=== PATIENT | female | born 1960 | race Caucasian/White ===

== ENCOUNTER 2016-11-29 10:53 | Emergency (ER) | payer BC, OTHER ==
[2016-11-29 15:15] LABS: Hematocrit 46 % (35-47); Hemoglobin 15.7 g/dl (12.0-16.0); Mean Corpuscular HGB Conc 34 g/dl (31-36); Mean Corpuscular Hemoglobin 33 pg (27-31); Mean Corpuscular Volume 95 fL (80-97); Mean Platelet Volume 9 um3 (7.4-10.4); Red Blood Count 4.79 10^6/ul (4.0-5.4); Red Cell Distribution Width 14 % (10.5-15)
[2016-11-29 15:19] LABS: Comments Flag Yes
[2016-11-29 15:32] LABS: Albumin 4.5 g/dL (3.2-5.2); BUN/Creatinine Ratio 20.7 (8-20); C Reactive Protein 1.52 mg/L (< 5.00); Calcium 9.3 mg/dL (8.6-10.3); EGFR African American 139.3 (>60); EGFR Non-African American 108.3 (>60); Globulin 3.6 g/dL (2-4); Potassium 3.7 mmol/L (3.5-5.0); Total Bilirubin 0.4 mg/dL (0.2-1.0); Total Protein 8.1 g/dL (6.4-8.9)
[2016-11-29 15:33] LABS: Urine Bilirubin Negative (Negative); Urine Glucose Negative (Negative); Urine Nitrite Negative (Negative)
[2016-11-29 16:30] LABS: Add Diff/Slide Review? Manual Diff Added
[2016-11-29 16:31] LABS: Immature Granulocytes 4 % (0-9); Neutrophil % 61 % (38-83); RBC Morphology Normal (Normal); Reactive Lymph % 7 % (0-6)
--- NOTE | 2016-11-29 18:01 | RAD ---
INDICATION: Pelvic pain. COMPARISON: Comparison is made with a prior study from July 07, 2013. TECHNIQUE: Multiple real-time transvaginal images of the pelvis were obtained. FINDINGS: The uterus is heterogeneous throughout with multiple small fibroids. The largest measures 0.7 x 0.4 x 0.9 cm. The uterus measured 6.9 x 3.5 x 5.1 cm. The endometrial echo measured 0.3 cm in thickness. The right ovary measured 2.1 x 1.3 x 1.8 cm. The left ovary measured 3.6 x 2.2 x 3.1 cm. There is vascular flow within both ovaries. There is a slightly complex left ovarian cyst with a mildly thickened septa measuring 2.5 x 2.1 x 2.7 cm. No free intraperitoneal fluid is seen. IMPRESSION: 1. HETEROGENEOUS UTERUS WITH MULTIPLE SMALL LEIOMYOMAS. 2. SLIGHTLY COMPLEX 2.7 CM LEFT OVARIAN CYST. RECOMMEND A FOLLOW-UP PELVIC ULTRASOUND IN 1-2 MONTHS TIME TO DEMONSTRATE RESOLUTION.
[2016-11-29] MEDS ORDERED: Iohexol 300* (CONTRAST) 10 ML SDV IV ONE (18:29)
--- NOTE | 2016-11-29 19:02 | RAD ---
INDICATION: Abdominal pain. COMPARISON: Comparison is made with a prior CT angiogram of the abdomen and pelvis from February 18, 2013. TECHNIQUE: A CT scan of the abdomen and pelvis was performed with intravenous and oral contrast following intravenous injection of 85 ml of Omnipaque 300 nonionic contrast. Contiguous axial sections were obtained from the lung bases through the symphysis pubis. Images were reconstructed in the coronal and sagittal planes. FINDINGS: The lung bases are clear. No pleural effusion is present. The liver and spleen are normal in size. There is a small hypodense hepatic lesion present in the superior portion of the right hepatic lobe which is unchanged from the prior exam and likely represents a cyst. This measures 0.8 cm in size. No calcified gallstones are seen. The pancreas appears prominent although unchanged from the prior study. No pancreatic ductal distention is present. There are thickening of the limbs of the left adrenal gland which are unchanged. The right adrenal gland appears normal. The kidneys are normal in size. No hydronephrosis is seen. No significant focal renal abnormality is seen. The aorta is normal in caliber with moderate calcific plaque present. No significant enlarged retroperitoneal lymph nodes are seen. The stomach, small and large bowel appear nondistended. The appendix is within normal limits. There is mild descending and sigmoid diverticulosis. There is no evidence for diverticulitis or colitis. The uterus is retroverted and normal in size. There is a 2.4 x 2.0 cm left ovarian cyst. No free intraperitoneal air or fluid is seen. No significant focal osseous abnormality is seen. IMPRESSION: 1. NO EVIDENCE FOR ACUTE FINDING OR CAUSE FOR THE PATIENT'S ABDOMINAL PAIN IS SEEN. 2. 2.4 CM LEFT OVARIAN CYST.
[2016-11-29 19:42] VITALS: BP 123/74
--- NOTE | 2016-11-29 19:42 | ED ---
Sandhya Caba SooYoung, scribed for Nino Canada MD on 11/29/16 at 1423 . Abdominal Pain/Female - HPI Summary HPI Summary: A 56 y/o F presents to ED with c/o intermittent suprapubic abd pain onset 2 weeks ago. Pain rated as 5 out of 10. Associated sx: fatigue, nausea, L-sided lower back and flank pain, chills, itchy "all over," irregular BMs with episodes of constipation and diarrhea, increased frequency. Pt notes chronic back pain. Last BM was this AM. Denies vomiting, vaginal bleeding and discharge , dysuria. She spoke to her PCP's office who referred her to ED. No alleviating or aggravating factors. [facility]: over a year ago, she had a uterine ablasion for excessive bleeding. Pert PMHx: IBS, kidney infections. PSHx: , uterine ablasion. NKA. - History of Current Complaint Chief Complaint: EDAbdPain Stated Complaint: LOWER BACK,LT SIDE,STOMACH PAIN Time Seen by Provider: 11/29/16 14:15 Hx Obtained From: Patient Onset/Duration: Gradual Onset, Lasting Weeks - approx 2, Still Present Timing: Intermittent Episode Lasting Severity Initially: Moderate Severity Currently: Moderate Pain Intensity: 5 Pain Scale Used: 0-10 Numeric Location: Suprapubic Radiates: Yes Radiates to: Back, Flank Associated Signs and Symptoms: Positive: Back Pain, Constipation, Urinary Symptoms - frequency, Nausea, Diarrhea, Other: - pos: fatigue, chills, itchy. Negative: Vaginal Bleeding, Vaginal Discharge, Vomiting Allergies/Adverse Reactions: Allergies Allergy/AdvReac Type Severity Reaction Status Date / Time No Known Allergies Allergy Verified 12/25/14 18:16 PMH/Surg Hx/FS Hx/Imm Hx Previously Healthy: No Endocrine/Hematology History: Denies: Hx Diabetes Cardiovascular History: Denies: Hx Congestive Heart Failure, Hx Hypertension History: Reports: Hx Kidney Infection Denies: Hx Kidney Stones Musculoskeletal History: Reports: Hx Back Problems - Cancer History Hx Chemotherapy: No Hx Radiation Therapy: No Infectious Disease History: No Infectious Disease History: Denies: Traveled Outside the [place] in Last 30 Days - Family History Known Family History: Positive: Cardiac Disease - Father at 48, cardiac related, Other - [place], dementia - Social History Occupation: Employed Full-time Lives: Alone Alcohol Use: None Hx Substance Use: No Substance Use Type: Reports: None Hx Tobacco Use: Yes Smoking Status (MU): Heavy Every Day Tobacco Smoker Review of Systems Positive: Chills, Fatigue, Other - itchy all over Positive: Abdominal Pain, Diarrhea, Nausea, Other - pos: constipation. Negative : Vomiting Positive: frequency, flank pain - L. Negative: dysuria, discharge Positive: Other - pos: L lower back pain All Other Systems Reviewed And Are Negative: Yes Physical Exam Triage Information Reviewed: Yes Vital Signs On Initial Exam: Initial Vitals Temp Pulse Resp BP Pulse Ox 98.9 F 68 20 133/72 99 11/29/16 11:04 11/29/16 11:04 11/29/16 11:04 11/29/16 11:04 11/29/16 11:04 Vital Signs Reviewed: Yes Appearance: Positive: Well-Appearing, No Pain Distress Skin: Positive: Warm, Skin Color Reflects Adequate Perfusion Head/Face: Positive: Normal Head/Face Inspection Eyes: Positive: EOMI ENT: Positive: Normal ENT inspection Respiratory/Lung Sounds: Positive: Clear to Auscultation, Breath Sounds Present Cardiovascular: Positive: RRR. Negative: Murmur Abdomen Description: Positive: CVA Tenderness (L), Other: - some suprapubic tenderness Neurological: Positive: Sensory/Motor Intact, Alert, Oriented to Person Place, Time, CN Intact II-III Psychiatric: Positive: Normal - Carly Coma Scale Best Eye Response: 4 - Spontaneous Best Motor Response: 6 - Obeys Commands Best Verbal Response: 5 - Oriented Diagnostics - Vital Signs Vital Signs Temp Pulse Resp BP Pulse Ox 11/29/16 12:37 98.6 F 62 20 110/65 99 11/29/16 11:04 98.9 F 68 20 133/72 99 - Laboratory Result Diagrams: 11/29/16 14:55 11/29/16 14:55 Lab Statement: Any lab studies that have been ordered have been reviewed, and results considered in the medical decision making process. - CT A/P CT CT Interpretation: Positive (See Comments) - IMPRESSION: 1. NO EVIDENCE FOR ACUTE FINDING OR CAUSE FOR THE PATIENT'S ABDOMINAL PAIN IS SEEN. 2. 2.4 CM LEFT OVARIAN CYST. ED physician has reviewed this radiology report and agrees. CT Interpretation Completed By: Radiologist - Ultrasound No standard instances Ultrasound Interpretation: Positive (See Comments) - IMPRESSION: 1. HETEROGENEOUS UTERUS WITH MULTIPLE SMALL LEIOMYOMAS. 2. SLIGHTLY COMPLEX 2.7 CM LEFT OVARIAN CYST. RECOMMEND A FOLLOW-UP PELVIC ULTRASOUND IN 1-2 MONTHS TIME TO DEMONSTRATE RESOLUTION. ED physician has reviewed this radiology report and agrees. Ultrasound Interpretation Completed By: Radiologist Re-Evaluation - Re-Evaluation First Eval Re-Evaluation Time: 14:35 Change: Unchanged Comment: charge nurse kamlesh, and primary nurse made aware labs and urine need to be drawn and sent Second Eval Re-Evaluation Time: 19:41 Change: Improved Comment: The patient is comfortable at this point. She was informed of all her test results and she is aware she needs to follow up with [employer] to be sure the left ovarian cyst resolves and for follow up ultrasound. She has established [employer] already at Dr Mckeon office. Abdominal Pain Fem Course/Dx - Course Course Of Treatment: A 56 y/o F presents with intermittent suprapubic abd pain onset 2 weeks ago. Associated sx: fatigue, nausea, L-sided lower back and flank pain, chills, itchy "all over," irregular BMs with episodes of constipation and diarrhea, increased frequency. Last BM was this AM. Denies vomiting, vaginal bleeding and discharge, dysuria. She spoke to her PCP's office who referred her to ED. No alleviating or aggravating factors. [facility]: over a year ago, she had a uterine ablasion for excessive bleeding. Pert PMHx: IBS, kidney infections, chronic back pain. PSHx: , uterine ablasion. NKA. Bloodwork is without significant abnormality. UA is negative for infection. Transvag U/S is "1. HETEROGENEOUS UTERUS WITH MULTIPLE SMALL LEIOMYOMAS. 2. SLIGHTLY COMPLEX 2.7 CM LEFT OVARIAN CYST. RECOMMEND A FOLLOW-UP PELVIC ULTRASOUND IN 1-2 MONTHS TIME TO DEMONSTRATE RESOLUTION." A/P CT shows " 1. NO EVIDENCE FOR ACUTE FINDING OR CAUSE FOR THE PATIENT'S ABDOMINAL PAIN IS SEEN. 2. 2.4 CM LEFT OVARIAN CYST.". The patient will follow up with Dr Mckeon, the OBGYN office that did her recent [employer] annual exam for the cyst. Will put her on bactrim DS for frequency of urination. She states that in the past she has had UTIs and they do not show on the initial UA. Culture added to the urine. - Diagnoses Provider Diagnoses: UTI (urinary tract infection), Ovarian cyst Discharge - Discharge Plan Condition: Good Disposition: HOME Prescriptions: Sulfamethox/Trimethoprim DS* [Bactrim DS 800/160 TAB*] 1 tab PO BID #10 tab Patient Education Materials: Ovarian Cyst (ED), Urinary Tract Infection in Women (ED) Referrals: Joi Nair MD [Primary Care Provider] - Steffanie Mckeon MD [Medical Doctor] - 2 Days The documentation as recorded by the Sandhya jean baptiste SooYoung accurately reflects the service I personally performed and the decisions made by , Nino Canada MD.
== END 2016-11-29 19:41 | disposition home or self-care (01) ==
LOC: ED 10:53
DX: N39.0 Urinary tract infection, site not specified (principal); N83.202 Unspecified ovarian cyst, left side; Z72.0 Tobacco use
CPT/HCPCS: 36415; 74177; 76830; 80053; 81003; 83690; 84702; 85025; 86140; 96374; 99283; Q9967